=== PATIENT | female | born 1985 | race Caucasian/White ===

== ENCOUNTER 2018-09-07 14:54 | Emergency (ER) | payer BC ==
[2018-09-07] MEDS ORDERED: ONDANSETRON 4 MG/2 ML VIAL ONE ×2 (15:43→16:22)
[2018-09-07] MEDS ORDERED: NA CHLORIDE 0.9% 1,000 ML ONE ×2 (15:43→17:04)
[2018-09-07 15:52] LABS: Absolute Monocytes 0.8 K/uL (0.1-1.3); Absolute Neutrophil 7.6 K/uL (1.8-8.0); Basophils % 0.5 % (0-1.3); Eosinophils % 0.1 % (0-4.4); Hematocrit 40.4 % (36.0-45.0); Lymphocytes % 18.8 % (15.3-44.8); MCH 32.6 pg (27.0-35.0); MCV 93.4 fL (80-100); MPV 9.7 fL (7.6-11.3); Monocytes % 8.1 % (3.3-12.3); RBC Red Blood Cell Count 4.33 M/uL (3.86-4.86)
[2018-09-07] MEDS ORDERED: LORAZEPAM 1 MG TABLET ONE (15:57)
[2018-09-07 16:04] LABS: ALT/SGPT 17 U/L (12-78); AST/SGOT 13 U/L (15-37); Albumin 4.3 g/dL (3.4-5.0); Alkaline Phosphatase 71 U/L (45-117); BUN Blood Urea Nitrogen 9 mg/dL (7-18); Bicarbonate 23 mmol/L (21-32); Bilirubin Direct 0.2 mg/dL (0-0.2); Bilirubin Total 0.6 mg/dL (0.2-1.0); Glucose Level 90 mg/dL (74-106); Lipase 80 U/L (73-393); Potassium 3.3 mmol/L (3.5-5.1); Protein, Total 8.2 g/dL (6.4-8.2); Sodium Level 137 mmol/L (136-145)
[2018-09-07] MEDS ORDERED: POTASSIUM CL SA 10 MEQ TAB PO ONE (16:18)
[2018-09-07 16:39] LABS: Urine Blood 1+ (NEG); Urine Glucose NEGATIVE (NEG); Urine Protein 1+ (NEG); Urine Specific Gravity >1.030 (1.005-1.030)
[2018-09-07] MEDS ORDERED: PROMETHAZINE 25 MG/ML VIAL ONE (17:14)
--- NOTE | 2018-09-07 18:15 | EDPHYS ---
Physician Documentation [facility] Name: Anushka De León Age: 33 yrs Sex: Female : 1985 Arrival Date: 09/07/2018 Time: 15:00 Bed 24 Private MD: out of town, doctor ED Physician Jah Bahena HPI: 09/07 16:11 This 33 yrs old Female presents to ER via Ambulatory with complaints of kb Vomiting. 16:11 The patient presents to the emergency department with nausea, vomiting. Onset: The kb symptoms/episode began/occurred today. Possible causes: stress. The symptoms are aggravated by nothing. The symptoms are alleviated by nothing. Associated signs and symptoms: Pertinent positives: nausea, vomiting, Pertinent negatives: abdominal pain, anorexia, belching, constipation, diarrhea, dysuria, fever, flatulence, GI bleeding, hematuria, vaginal discharge. Severity of symptoms: At their worst the symptoms were moderate in the emergency department the symptoms are unchanged. The patient has not experienced similar symptoms in the past. The patient has not recently seen a physician. Pt reports increased stress because her father was diagnosed with lung cancer and given a poor prognosis. Hasn't been able to eat since Wednesday night and started vomiting today. Pt tearful while giving history. 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 - Social history:: Smoking status: Patient uses tobacco products, smokes one-half pack cigarettes per day. - Ebola Screening: : Patient negative for fever greater than or equal to 101.5 degrees Fahrenheit, and additional compatible Ebola Virus Disease symptoms Patient denies exposure to infectious person Patient denies travel to an Ebola-affected area in the 21 days before illness onset No symptoms or risks identified at this time. ROS: 16:10 Constitutional: Negative for fever, chills, and weight loss, ENT: Negative for injury, kb pain, and discharge, Neck: Negative for injury, pain, and swelling, Cardiovascular: Negative for chest pain, palpitations, and edema, Respiratory: Negative for shortness of breath, cough, wheezing, and pleuritic chest pain, Back: Negative for injury and pain, MS/Extremity: Negative for injury and deformity, Skin: Negative for injury, rash, and discoloration, Neuro: Negative for headache, weakness, numbness, tingling, and seizure. 16:10 Abdomen/GI: Positive for nausea and vomiting, Negative for abdominal pain, diarrhea, constipation, abdominal cramps, abdominal distension, anorexia. Exam: 16:08 Head/Face: Normocephalic, atraumatic. ENT: Nares patent. No nasal discharge, no kb septal abnormalities noted. Tympanic membranes are normal and external auditory canals are clear. Oropharynx with no redness, swelling, or masses, exudates, or evidence of obstruction, uvula midline. Mucous membranes moist. Neck: Trachea midline, no thyromegaly or masses palpated, and no cervical lymphadenopathy. Supple, full range of motion without nuchal rigidity, or vertebral point tenderness. No Meningismus. Chest/axilla: Normal chest wall appearance and motion. Nontender with no deformity. No lesions are appreciated. Cardiovascular: Regular rate and rhythm with a normal S1 and S2. No gallops, murmurs, or rubs. Normal PMI, no JVD. No pulse deficits. Respiratory: Lungs have equal breath sounds bilaterally, clear to auscultation and percussion. No rales, rhonchi or wheezes noted. No increased work of breathing, no retractions or nasal flaring. Abdomen/GI: Soft, non-tender, with normal bowel sounds. No distension or tympany. No guarding or rebound. No evidence of tenderness throughout. Skin: Warm, dry with normal turgor. Normal color with no rashes, no lesions, and no evidence of cellulitis. MS/ Extremity: Pulses equal, no cyanosis. Neurovascular intact. Full, normal range of motion. Neuro: Awake and alert, GCS 15, oriented to person, place, time, and situation. Cranial nerves II-XII grossly intact. Motor strength 5/5 in all extremities. Sensory grossly intact. Cerebellar exam normal. Normal gait. 16:08 Constitutional: The patient appears alert, awake, anxious, tearful Vital Signs: 15:20 BP 119 / 81; Pulse 75; Resp 16; Temp 98.2; Pulse Ox 98% on R/A; iw 17:37 BP 114 / 66; Pulse 101; Resp 18; Pulse Ox 100% ; tl3 17:59 BP 123 / 77; Pulse 91; Resp 18; Pulse Ox 97% ; tl3 18:19 BP 111 / 55; Pulse 93; Resp 18; Pulse Ox 100% ; tl3 MDM: 15:14 Patient medically screened. kb 16:08 Data reviewed: vital signs, nurses notes. Data interpreted: Pulse oximetry: on room air kb is 98 %. Interpretation: normal. 18:09 ED course: Phenergan caused restless leg spasms. Will treat with cogentin. Pt kb tolerating PO fluids.. 18:13 Counseling: I had a detailed discussion with the patient and/or guardian regarding: the kb historical points, exam findings, and any diagnostic results supporting the discharge/admit diagnosis, lab results, the need for outpatient follow up, a family practitioner, to return to the emergency department if symptoms worsen or persist or if there are any questions or concerns that arise at home. 09/07 15:26 Order name: Basic Metabolic Panel; Complete Time: 16:05 kb 09/07 15:26 Order name: CBC with Diff; Complete Time: 16:02 kb 09/07 15:26 Order name: Hepatic Function; Complete Time: 16:05 kb 09/07 15:26 Order name: Lipase; Complete Time: 16:05 kb 09/07 15:56 Order name: Urine Dipstick--Ancillary (enter results); Complete Time: 16:42 bd 09/07 15:56 Order name: Urine --Ancillary (enter results); Complete Time: 16:42 bd 09/07 15:26 Order name: IV Saline Lock; Complete Time: 15:40 kb 09/07 15:26 Order name: Labs collected and sent; Complete Time: 15:40 kb 09/07 16:06 Order name: PO challenge; Complete Time: 16:53 kb Administered Medications: 15:39 Drug: Zofran 4 mg Route: IVP; Infused Over: 2 mins; Site: right antecubital; tl3 17:02 Follow up: Response: No adverse reaction; Nausea is decreased tl3 15:40 Drug: NS 0.9% 1000 ml Route: IV; Rate: 1000 ml; Site: right antecubital; Delivery: tl3 Primary tubing; 17:02 Follow up: IV Status: Completed infusion; IV Intake: 1000ml tl3 15:51 Drug: Ativan 1 mg Route: PO; tl3 17:02 Follow up: Response: No adverse reaction; Anxiety decreased tl3 16:16 Drug: Zofran 4 mg Route: IVP; Site: right forearm; mg2 17:03 Follow up: Response: No adverse reaction; Nausea is decreased tl3 16:53 Drug: Potassium Chloride 20 mEq Route: PO; mg2 17:03 Follow up: Response: No adverse reaction tl3 17:01 Drug: NS 0.9% 1000 ml Route: IV; Rate: 1000 ml; Site: right antecubital; Delivery: tl3 Primary tubing; 19:08 Follow up: Response: No adverse reaction; IV Status: Completed infusion mg2 17:18 Drug: Phenergan 12.5 mg Route: IVP; Infused Over: 3 mins; Site: right antecubital; tl3 18:15 Follow up: Response: Adverse reaction, Physician notified; casused dystonic reaction tl3 18:15 Drug: COgentin 1 mg Route: IVP; Infused Over: 2 mins; Site: right antecubital; tl3 19:08 Follow up: Response: No adverse reaction; Marked relief of symptoms mg2 Disposition: 09/07/18 18:14 Discharged to Home. Impression: Nausea with vomiting, unspecified. - Condition is Stable. - Discharge Instructions: Nausea and Vomiting, Adult, [id number]. - Prescriptions for Zofran 4 mg Oral Tablet - take 1 tablet by ORAL route every 6 hours As needed; 20 tablet. - Medication Reconciliation Form, Thank You Letter, Antibiotic Education, Prescription Opioid Use form. - Follow up: Emergency Department; When: As needed; Reason: Worsening of condition. Follow up: Private Physician; When: 2 - 3 days; Reason: Recheck today's complaints, Continuance of care, Re-evaluation by your physician. Addendum: 09/13/2018 01:37 Co-signature as Attending Physician, Jah Bahena MD. r n Signatures: Dispatcher [employer] EDSharon Gray, KADY-C KADY-CkSocorro Fuchs RN RN iw Jah Bahena MD MD rn Lowrey, Tammy, RN RN tl3 Shubham Kate RN RN mg2 Corrections: (The following items were deleted from the chart) 09/07 18:18 15:20 Allergies: NKA; iw tl3 19:09 18:14 09/07/2018 18:14 Discharged to Home. Impression: Nausea with vomiting, mg2 unspecified. Condition is Stable. Discharge Instructions: Nausea and Vomiting, Adult, [id number]. Prescriptions for Zofran 4 mg Oral Tablet - take 1 tablet by ORAL route every 6 hours As needed; 20 tablet. and Forms are Medication Reconciliation Form, Thank You Letter, Antibiotic Education, Prescription Opioid Use. Follow up: Emergency Department; When: As needed; Reason: Worsening of condition. Follow up: Private Physician; When: 2 - 3 days; Reason: Recheck today's complaints, Continuance of care, Re-evaluation by your physician. kb
--- NOTE | 2018-09-07 18:15 | ER ---
Nurse's Notes [facility] Name: Anushka De León Age: 33 yrs Sex: Female : 1985 Arrival Date: 09/07/2018 Time: 15:00 Bed 24 Private MD: out of town, doctor Diagnosis: Nausea with vomiting, unspecified Presentation: 09/07 15:18 Presenting complaint: Patient states: no appetite, vomiting, unable to keep food down, iw has not ate anything since Wednesday, is from [place], father recently diagnosed with cancer and she has been very stressed out. Transition of care: patient was not received from another setting of care. Onset of symptoms was September 03, 2018. Risk Assessment: Do you want to hurt yourself or someone else? Patient reports no desire to harm self or others. Initial Sepsis Screen: Does the patient meet any 2 criteria? No. Patient's initial sepsis screen is negative. Does the patient have a suspected source of infection? No. Patient's initial sepsis screen is negative. Care prior to arrival: None. 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 - Social history:: Smoking status: Patient uses tobacco products, smokes one-half pack cigarettes per day. - Ebola Screening: : Patient negative for fever greater than or equal to 101.5 degrees Fahrenheit, and additional compatible Ebola Virus Disease symptoms Patient denies exposure to infectious person Patient denies travel to an Ebola-affected area in the 21 days before illness onset No symptoms or risks identified at this time. Screenin:26 Abuse screen: Denies threats or abuse. Nutritional screening: No deficits noted. tl3 Tuberculosis screening: No symptoms or risk factors identified. Fall Risk None identified. Assessment: 15:26 General: Reports unable to tolerate food or even water started vomiting this morning at tl3 about 1am, has lots of stressors now, father recently dx with lung cancer. General: Appears distressed, uncomfortable, well groomed, well developed, well nourished, Behavior is cooperative, appropriate for age, anxious, crying. Pain:. Neuro: Level of Consciousness is awake, alert, obeys commands, Oriented to person, place, time, situation, Appropriate for age. Cardiovascular: Patient's skin is warm and dry. Respiratory: Airway is patent Respiratory effort is even, unlabored, Respiratory pattern is regular, symmetrical. GI: Reports upper abdominal pain, nausea, vomiting. GI: Abdomen is round. : No signs and/or symptoms were reported regarding the genitourinary system. : Reports darker urine. EENT: No signs and/or symptoms were reported regarding the EENT system. Derm: No signs and/or symptoms reported regarding the dermatologic system. Musculoskeletal: No signs and/or symptoms reported regarding the musculoskeletal system. 17:37 Reassessment: No changes from previously documented assessment. Patient and/or family tl3 updated on plan of care and expected duration. Pain level reassessed. pt reports that her right leg keeps moving. She has restless leg syndrome, but this is really bad per patient. 18:19 Reassessment: No changes from previously documented assessment. Patient and/or family tl3 updated on plan of care and expected duration. Pain level reassessed. Vital Signs: 15:20 BP 119 / 81; Pulse 75; Resp 16; Temp 98.2; Pulse Ox 98% on R/A; iw 17:37 BP 114 / 66; Pulse 101; Resp 18; Pulse Ox 100% ; tl3 17:59 BP 123 / 77; Pulse 91; Resp 18; Pulse Ox 97% ; tl3 18:19 BP 111 / 55; Pulse 93; Resp 18; Pulse Ox 100% ; tl3 ED Course: 15:00 Patient arrived in ED. mr 15:00 out of town, doctor is Private Physician. mr 15:10 Sharon Lu FNP-C is PSYCHIATRICP. kb 15:10 Jah Bahena MD is Attending Physician. kb 15:15 Sharri Yuan, RN is Primary Nurse. tl3 15:20 Triage completed. iw 15:20 Arm band placed on. iw 15:26 Patient has correct armband on for positive identification. Bed in low position. Call tl3 light in reach. Side rails up X2. Pulse ox on. NIBP on. Warm blanket given. 15:26 No provider procedures requiring assistance completed. Inserted saline lock: 20 gauge tl3 in right antecubital area, using aseptic technique. Blood collected. 19:07 IV discontinued, intact, bleeding controlled, No redness/swelling at site. Pressure mg2 dressing applied. Administered Medications: 15:39 Drug: Zofran 4 mg Route: IVP; Infused Over: 2 mins; Site: right antecubital; tl3 17:02 Follow up: Response: No adverse reaction; Nausea is decreased tl3 15:40 Drug: NS 0.9% 1000 ml Route: IV; Rate: 1000 ml; Site: right antecubital; Delivery: tl3 Primary tubing; 17:02 Follow up: IV Status: Completed infusion; IV Intake: 1000ml tl3 15:51 Drug: Ativan 1 mg Route: PO; tl3 17:02 Follow up: Response: No adverse reaction; Anxiety decreased tl3 16:16 Drug: Zofran 4 mg Route: IVP; Site: right forearm; mg2 17:03 Follow up: Response: No adverse reaction; Nausea is decreased tl3 16:53 Drug: Potassium Chloride 20 mEq Route: PO; mg2 17:03 Follow up: Response: No adverse reaction tl3 17:01 Drug: NS 0.9% 1000 ml Route: IV; Rate: 1000 ml; Site: right antecubital; Delivery: tl3 Primary tubing; 19:08 Follow up: Response: No adverse reaction; IV Status: Completed infusion mg2 17:18 Drug: Phenergan 12.5 mg Route: IVP; Infused Over: 3 mins; Site: right antecubital; tl3 18:15 Follow up: Response: Adverse reaction, Physician notified; casused dystonic reaction tl3 18:15 Drug: COgentin 1 mg Route: IVP; Infused Over: 2 mins; Site: right antecubital; tl3 19:08 Follow up: Response: No adverse reaction; Marked relief of symptoms mg2 Intake: 17:02 IV: 1000ml; Total: 1000ml. tl3 Outcome: 18:14 Discharge ordered by MD. leung 19:08 Discharged to home ambulatory. mg2 19:08 Condition: stable 19:08 Discharge instructions given to patient, Instructed on discharge instructions, follow up and referral plans. medication usage, Demonstrated understanding of instructions, follow-up care, medications, Prescriptions given X 1. 19:09 Patient left the ED. mg2 Signatures: Sharon Lu, MONORAIL CRANE OPERATOR-C MONORAIL CRANE OPERATOR-Ageuda Danni Claudio mr Socorro Hall RN RN iw Sharri Yuan RN RN tl3 Shubham Kate RN RN mg2 Corrections: (The following items were deleted from the chart) 15:51 15:26 General: Appears distressed, uncomfortable, well groomed, well developed, well tl3 nourished, Behavior is cooperative, appropriate for age, anxious, tl3 18:18 15:20 Allergies: NKA; iw tl3
[2018-09-07] MEDS ORDERED: BENZTROPINE 2 MG/2 ML VIAL ONE (18:19)
== END 2018-09-07 19:09 | disposition home or self-care (01) ==
LOC: ER 14:54
DX: R11.2 Nausea with vomiting, unspecified (principal); F17.210 Nicotine dependence, cigarettes, uncomplicated; Z88.8 Allergy status to other drugs, medicaments and biological substances
CPT/HCPCS: 36415; 80048; 80076; 81003; 81025; 83690; 85025; 99284; J0515; J2405; J2550; J7030